=== PATIENT | female | born 1925 | race Caucasian/White ===

== ENCOUNTER → 2016-03-29 | Outpatient (CLI) | payer OTHER, BC ==
[~2016-03-29] MED LIST: AMLO-114 PO; CALC-445 PO; LABE100T16 PO; LISI40TA PO; RCL25 PO; TIMO0.2534 OPB; TRAV0.00 OPB
== END | disposition home or self-care (01) ==
LOC: C.RDSM 10:11
PROVIDERS: ATTEND Physical Medicine & Rehabilitation Sports Medicine
DX: Z96.651 Presence of right artificial knee joint (principal); M25.561 Pain in right knee

== ENCOUNTER → 2016-05-13 | Outpatient (CLI) | payer OTHER, BC ==
[2016-05-13 12:12] LABS: BASO % 0.1 %; BASO ABS # 0.01 K/uL (0-0.2); COMPLETE YES; EOS % 2.4 %; HEMATOCRIT 39.8 % (37-47); IG% 0.1 %; LYMPH % 13.9 %; MEAN CELL VOLUME 89.6 fL (80-100); MEAN CORPUSCULAR HEMOGLOBIN 29.7 pg (25-34); MEAN CORPUSCULAR HGB CONC 33.2 g/dl (32-36); MEAN PLATELET VOLUME 8.3 fL (7.4-10.4); MONO % 11.6 %; NEUT % 71.9 %; PLATELET COUNT 335 K/uL (130-400); RED BLOOD COUNT 4.44 M/uL (4.2-5.4); WHITE BLOOD COUNT 7.93 K/uL (4.8-10.8)
--- NOTE | 2016-05-13 12:19 | DIAGNOSTIC IMAGING REPORT ---
ABDOMEN 2VIEW W/PA CHEST RTN CLINICAL HISTORY: R14.0 Abdominal [id number] Rectal [id number] COMPARISON STUDY: 11/01/2013 FINDINGS: The soft tissues, psoas shadows, renal outlines and intestinal gas pattern appear normal. There is no evidence for bowel obstruction. There is no evidence for free intraperitoneal air. No abnormal abdominal calcifications are seen. A frontal view of the chest was performed and is unremarkable. IMPRESSION: Normal study. Electronically signed by: Archie Pleitez M.D. 05/13/2016 12:18 PM Dictated Date/Time: 05/13/2016 12:16 PM
[2016-05-13 12:55] LABS: BLOOD UREA NITROGEN 15 mg/dl (7-18); BUN/CREATININE RATIO 20.3 (10-20); CALCIUM 9.1 mg/dl (8.5-10.1); CARBON DIOXIDE 34 mmol/L (21-32); CHLORIDE 103 mmol/L (98-107); CREATININE 0.75 mg/dl (0.60-1.20); GLUCOSE 72 mg/dl (70-99); POTASSIUM 3.6 mmol/L (3.5-5.1); SODIUM 142 mmol/L (136-145)
== END | disposition home or self-care (01) ==
LOC: C.RAD 11:38
PROVIDERS: ATTEND Family Medicine
DX: R14.0 Abdominal distension (gaseous) (principal); K62.5 Hemorrhage of anus and rectum; I10 Essential (primary) hypertension